=== PATIENT | female | born 1955 | race Caucasian/White ===

== ENCOUNTER 2017-12-12 13:21 | Inpatient (IN) | payer MEDICARE ==
[~2017-12-12] VITALS: Ht 162.6 cm; Wt 92.1 kg
[2017-12-12 15:07] LABS: BASOPHILS % (AUTO) 0.7 % (0.0-5.0); EOSINOPHILS % (AUTO) 2.4 % (0.0-8.0); HEMATOCRIT 38.1 % (36-48); MEAN CORPUSCULAR HEMOGLOBIN 36.6 pg (27.0-33.0); MEAN CORPUSCULAR HGB CONC 35.1 g/dL (32.0-36.0); MEAN CORPUSCULAR VOLUME 104.2 fL (79-99); MONOCYTES % (AUTO) 12.1 % (3.0-13.0); NEUTROPHILS % (AUTO) 35.8 % (40.0-77.0); NUCLEATED RED BLOOD CELLS 0.2 % (0.0-0.19); PLATELET COUNT (AUTO) 73 K/uL (130-400); RED BLOOD CELL COUNT(AUTO) 3.65 MIL/uL (4.00-5.50); RED CELL DISTRIBUTION WIDTH 18.4 % (11.0-15.5); WHITE BLOOD COUNT (AUTO) 4.9 K/uL (4.8-10.8)
[2017-12-12 15:17] LABS: CREATININE 0.6 mg/dL (0.5-1.5); POTASSIUM 3.8 mmol/L (3.5-5.1)
[2017-12-12 15:19] LABS: INR 1.71 (0.85-1.15); PROTHROMBIN TIME 17.8 SEC (9.6-11.6)
[2017-12-12 15:22] LABS: ALBUMIN 1.8 g/dL (3.5-5.0); BILIRUBIN,DIRECT 1.3 mg/dL (0.0-0.3); BILIRUBIN,TOTAL 2.3 mg/dL (0.2-1.0); TOTAL PROTEIN, SERUM 8.2 g/dL (6.0-8.3)
[2017-12-12 17:31] LABS: APPEARANCE,URINE Turbid (CLEAR); BILIRUBIN,URINE Moderate (NEGATIVE); COLOR,URINE Dark Yellow (YELLOW); GLUCOSE, URINE (UA) Negative (NEGATIVE); KETONES,URINE Trace mg/dL (NEGATIVE); LEUKOCYTE ESTERASE ,URINE Trace (NEGATIVE); NITRATE,URINE Positive (NEGATIVE); OCCULT BLOOD,URINE Moderate (NEGATIVE); PH,URINE 5.5 (5.0-8.0); PROTEIN,URINE POS 1+ (NEGATIVE)
[2017-12-12 17:40] LABS: BACTERIA,URINE Few /HPF (None Seen); MUCUS,URINE Many LPF (None Seen)
[2017-12-12] MEDS: FAMOTIDINE 20MG TAB 20 MG TAB PO SCH (21:14)
[2017-12-12] MEDS: ENOXAPARIN SODIUM 30 MG/0.3 ML SQ SCH (21:15)
[2017-12-12] MEDS: CEFTRIAXONE SODIUM 2 GM VIAL IVP SCH (21:15)
[2017-12-12] MEDS ORDERED: SODIUM CHLORIDE 0.9% 1000ML 1,000 ML IV SCH (21:15)
[2017-12-12] MEDS ORDERED: ACETAMINOPHEN 325 MG TAB PO PRN (21:30)
[2017-12-12] MEDS ORDERED: ONDANSETRON HCL MDV 20ML 2 MG/ML VIAL IVP PRN (21:30)
[2017-12-12] MEDS ORDERED: CEFTRIAXONE SODIUM 2 GM VIAL ONE (22:53)
[2017-12-12] MEDS ORDERED: SODIUM CHLORIDE 0.9% 1000ML 1,000 ML IV ONE (22:53)
[2017-12-13] VITALS (7 sets, daily range): BP systolic 106–137; BP diastolic 49–75
[2017-12-13 05:46] LABS: CREATININE 0.6 mg/dL (0.5-1.5); POTASSIUM 3.2 mmol/L (3.5-5.1)
[2017-12-13 05:49] LABS: HEMATOCRIT 34.3 % (36-48); MEAN CORPUSCULAR HEMOGLOBIN 37.7 pg (27.0-33.0); MEAN CORPUSCULAR HGB CONC 36.1 g/dL (32.0-36.0); MEAN CORPUSCULAR VOLUME 104.6 fL (79-99); NUCLEATED RED BLOOD CELLS 0.4 % (0.0-0.19); PLATELET COUNT (AUTO) 93 K/uL (130-400); RED BLOOD CELL COUNT(AUTO) 3.27 MIL/uL (4.00-5.50); RED CELL DISTRIBUTION WIDTH 18.6 % (11.0-15.5); WHITE BLOOD COUNT (AUTO) 4.5 K/uL (4.8-10.8)
[2017-12-13] MEDS: ENOXAPARIN SODIUM 30 MG/0.3 ML SQ SCH (09:00)
[2017-12-13] MEDS: FAMOTIDINE 20MG TAB 20 MG TAB PO SCH ×2 (09:00→20:58)
[2017-12-13] MEDS ORDERED: POTASSIUM CHLORIDE 10% ELIXIR 20 MEQ/15 ML UDCUP PO PRN (09:15)
[2017-12-13] MEDS ORDERED: LIDOCAINE HCL-MPF 1% 2ML VIAL IVP PRN (09:15)
[2017-12-13] MEDS ORDERED: POTASSIUM CHLORIDE 20 MEQ ERTAB PO PRN (09:15)
[2017-12-13] MEDS ORDERED: POTASSIUM CHLORIDE 20MEQ/100ML 100 ML IV PRN (09:15)
[2017-12-13] MEDS ORDERED: LORAZEPAM 0.5 MG TABLET PO PRN (18:15)
[2017-12-13] MEDS ORDERED: LORA0.5T2 PO (18:26)
[2017-12-13] MEDS ORDERED: PHEN125O3 PO (18:26)
[2017-12-13] MEDS ORDERED: POLY17PO4 PO (18:26)
[2017-12-13] MEDS ORDERED: VALP500S PO (18:26)
[2017-12-13] MEDS ORDERED: LEVE100S PO (18:26)
[2017-12-13] MEDS ORDERED: LEVO112T7 PO (18:26)
[2017-12-13] MEDS ORDERED: SODIUM CHLORIDE 0.9% 1000ML 1,000 ML IV SCH (19:45)
[2017-12-13] MEDS: CEFTRIAXONE SODIUM 2 GM VIAL IVP SCH (20:58)
[2017-12-13] MEDS: PHENYTOIN 100 MG/4 ML UDCUP PEG SCH (20:58)
[2017-12-13] MEDS ORDERED: PHENYTOIN SODIUM 100 MG ERCAP PO SCH (21:00)
[2017-12-13] MEDS ORDERED: VALPROATE SODIUM PO SCH (21:00)
[2017-12-13] MEDS ORDERED: LEVETIRACETAM 250 MG TABLET PO SCH (21:00)
[2017-12-13] MEDS: LEVETIRACETAM 100 MG/ML 5 ML UDCUP PEG SCH (21:27)
[2017-12-13] MEDS: VALPROATE SOD 250 MG/5 ML (PO) PEG SCH (21:27)
[2017-12-13] MEDS ORDERED: ACETAMINOPHEN ELIXIR 650 MG/20.3 ML UDCUP PEG PRN (21:30)
[2017-12-14 03:30] VITALS: BP 103/46
[2017-12-14 05:18] LABS: HEMATOCRIT 37.3 % (36-48); MEAN CORPUSCULAR HEMOGLOBIN 36.4 pg (27.0-33.0); MEAN CORPUSCULAR HGB CONC 34.9 g/dL (32.0-36.0); MEAN CORPUSCULAR VOLUME 104.3 fL (79-99); NUCLEATED RED BLOOD CELLS 0.1 % (0.0-0.19); PLATELET COUNT (AUTO) 102 K/uL (130-400); RED BLOOD CELL COUNT(AUTO) 3.57 MIL/uL (4.00-5.50)
[2017-12-14 05:32] LABS: CREATININE 0.7 mg/dL (0.5-1.5); MAGNESIUM 1.9 mg/dL (1.80-2.40); POTASSIUM 3.8 mmol/L (3.5-5.1)
[2017-12-14] MEDS ORDERED: LEVOTHYROXINE 112 MCG TABLET PO SCH (06:30)
[2017-12-14 08:09] VITALS: BP 121/63
[2017-12-14] MEDS ORDERED: POLYETHYLENE GLYCOL 3350 17 GM POWD.PACK PO SCH (09:00)
[2017-12-14] MEDS ORDERED: LEVO500T2 PO (12:01)
[2017-12-14 12:18] VITALS: BP 134/68
[2017-12-14] MEDS: LEVETIRACETAM 100 MG/ML 5 ML UDCUP PEG SCH ×2 (12:59→15:27)
[2017-12-14] MEDS: FAMOTIDINE 20MG TAB 20 MG TAB PO SCH (13:00)
[2017-12-14] MEDS: PHENYTOIN 100 MG/4 ML UDCUP PEG SCH (13:00)
[2017-12-14] MEDS: VALPROATE SOD 250 MG/5 ML (PO) PEG SCH (13:00)
[2017-12-14 16:47] VITALS: BP 117/75
== END 2017-12-14 21:00 | DRG 444 ==
LOC: EDH 13:21 → EDHIP 20:59 → OBSVTOIN 20:59 → 4CH 23:19
PROVIDERS: ADMIT Family Medicine; ATTEND Family Medicine
DX: K83.8 Other specified diseases of biliary tract (principal); E43 Unspecified severe protein-calorie malnutrition; D68.9 Coagulation defect, unspecified; D69.6 Thrombocytopenia, unspecified; R18.8 Other ascites; R13.12 Dysphagia, oropharyngeal phase; R16.1 Splenomegaly, not elsewhere classified; N39.0 Urinary tract infection, site not specified; R47.01 Aphasia; K74.69 Other cirrhosis of liver; E86.0 Dehydration; E87.6 Hypokalemia; F79 Unspecified intellectual disabilities; G40.909 Epilepsy, unspecified, not intractable, without status epilepticus; G80.9 Cerebral palsy, unspecified; K21.9 Gastro-esophageal reflux disease without esophagitis; Z68.34 Body mass index [BMI] 34.0-34.9, adult
CPT/HCPCS: 36415; 74176; 76705; 78226; 80048; 80076; 81001; 82550; 82948; 83690; 83735; 84484; 85025; 85027; 85610; 85730; 87088; 93005; A4218; A9537; J0696; J1650; J7030